=== PATIENT | female | born 1985 | race Caucasian/White ===

== ENCOUNTER → 2017-09-24 | Outpatient (CLI) | payer BC, OTHER ==
[2017-09-24 09:09] LABS: ALT 37 U/L (9-52); AST 18 U/L (14-36); Albumin 3.9 g/dL (3.5-5.0); Alkaline Phosphatase 32 U/L (38-126); Anion Gap 11 mmol/L; Blood Urea Nitrogen 7 mg/dL (7-17); Calcium 9.1 mg/dL (8.4-10.2); Carbon Dioxide 25 mmol/L (22-30); Chloride 105 mmol/L (98-107); Cholesterol 136 mg/dL (<200); Glucose 91 mg/dL (74-99); HDL Cholesterol 52 mg/dL (40-60); LDL Cholesterol,Calculated 72 mg/dL (0-99); Potassium 4.4 mmol/L (3.5-5.1); Sodium 141 mmol/L (137-145); Total Bilirubin 0.5 mg/dL (0.2-1.3); Total Protein 6.5 g/dL (6.3-8.2); Triglycerides 62 mg/dL (<150)
[2017-09-24 09:12] LABS: Basophils % (A) 1 %; Eosinophils # (A) 0.2 k/uL (0-0.7); Eosinophils % (A) 4 %; HCT 41.9 % (34.0-46.0); HGB 13.2 gm/dL (11.4-16.0); Lymphocytes # (A) 1.6 k/uL (1.0-4.8); Lymphocytes % (A) 40 %; MCH 28.7 pg (25.0-35.0); MCHC 31.6 g/dL (31.0-37.0); MCV 90.9 fL (80.0-100.0); Mean Platelet Volume 7.3; Monocytes # (A) 0.3 k/uL (0-1.0); Monocytes % (A) 7 %; Neutrophils # (A) 1.8 k/uL (1.3-7.7); Neutrophils % (A) 45 %; Platelet Count 240 k/uL (150-450); RBC 4.61 m/uL (3.80-5.40); RDW 13.1 % (11.5-15.5); WBC 3.9 k/uL (3.8-10.6)
== END | disposition home or self-care (01) ==
LOC: LABWHC1 07:47
PROVIDERS: ATTEND Family Medicine
DX: Z00.00 Encounter for general adult medical examination without abnormal findings (principal); R53.83 Other fatigue; N93.8 Other specified abnormal uterine and vaginal bleeding; F32.9 Major depressive disorder, single episode, unspecified
CPT/HCPCS: 36415; 80053; 80061; 82607; 84443; 85025

== ENCOUNTER → 2017-10-30 | Outpatient (CLI) | payer OTHER ==
[2017-10-30 10:40] LABS: Basophils # (A) 0.1 k/uL (0-0.2); Basophils % (A) 1 %; Eosinophils # (A) 0.2 k/uL (0-0.7); Eosinophils % (A) 4 %; HCT 43.6 % (34.0-46.0); Lymphocytes # (A) 1.2 k/uL (1.0-4.8); Lymphocytes % (A) 23 %; MCH 28.8 pg (25.0-35.0); MCV 89.8 fL (80.0-100.0); Mean Platelet Volume 7.6; Monocytes # (A) 0.3 k/uL (0-1.0); Monocytes % (A) 7 %; Neutrophils # (A) 3.2 k/uL (1.3-7.7); Neutrophils % (A) 62 %; Platelet Count 232 k/uL (150-450); RBC 4.85 m/uL (3.80-5.40); RDW 13.3 % (11.5-15.5); WBC 5.1 k/uL (3.8-10.6)
== END | disposition home or self-care (01) ==
LOC: LABPAT 09:48
PROVIDERS: ATTEND Obstetrics & Gynecology
DX: Z01.812 Encounter for preprocedural laboratory examination (principal)
CPT/HCPCS: 36415; 85025

== ENCOUNTER 2017-11-07 06:01 | Day surgery (SDC) | payer OTHER ==
[2017-10-31 16:48] VITALS: BMI 29.0
--- NOTE | 2017-11-06 07:28 | P.HPOB ---
History of Present Illness H&P Date: 11/06/17 Chief Complaint: Menorrhagia This patient is a pleasant 31 yr female who is presenting for a hysteroscopy, D&C and Novasure endometrial ablation secondary to longstanding menorrhagia. Menses have continued to be a problem despite OCPs. She has had a tubal ligation and would like to proceed with ablation. Review of Systems Genitourinary: Reports as per HPI Menstruation: Reports cycle variable, Reports menses 8 or > days, Reports period heavy Past Medical History Past Medical History: CVA/TIA, Pneumonia, Skin Disorder Additional Past Medical History / Comment(s): currently having heavy menses- spotting daily,TIA during , eczema, has neck problems. Patient has a known pelvic kidney. History of Any Multi-Drug Resistant Organisms: MRSA Date of last positivie culture/infection: anjum thighs MDRO Source:: 2010 Additional Past Surgical History / Comment(s): bx of skin, oral surgery Past Anesthesia/Blood Transfusion Reactions: No Reported Reaction, Motion Sickness Past Psychological History: No Psychological Hx Reported Smoking Status: Never smoker Past Alcohol Use History: None Reported Past Drug Use History: None Reported - Past Family History Father Family Medical History: Cancer Medications and Allergies Home Medications Medication Instructions Recorded Confirmed Type Cetirizine HCl [Zyrtec] 10 mg PO DAILY 10/31/17 10/31/17 History FLUoxetine HCL [PROzac] 10 mg PO HS 10/31/17 10/31/17 History Fluticasone Nasal [place] [Flonase 2 spr EA NOSTRIL DAILY PRN 10/31/17 10/31/17 History Nasal [place]] Ibuprofen [Motrin] 200 - 400 mg PO Q6HR PRN 10/31/17 10/31/17 History Ben Fe (Birthcontrol) 1 tab PO QAM 10/31/17 10/31/17 History Allergies Allergy/AdvReac Type Severity Reaction Status Date / Time codeine AdvReac Nausea Verified 10/31/17 16:40 Exam - OBG Physical Exam Abdomen: bowel sounds normal, no diffuse tenderness, no bruit present, no guarding noted, no hepatomegaly, no splenomegaly, no mass Vulva: both: normal Vagina: normal moisture, no discharge Cervix: no lesion, no discharge Uterus: normal size, normal contour Assessment and Plan Assessment: This is a pleasant 31 year old with long standing menorrhagia who is requesting endometrial ablation for treatment. Plan is to proceed with hysteroscopy, D&C, and Novasure endometrial ablation. Patient and I have discussed this surgery and risks: infection, bleeding, possible uterine perforation and / or thermal injury. All of the patients questions have been answered and a written consent obtained. (1) Menorrhagia Status: Chronic Code(s): N92.0 - EXCESSIVE AND FREQUENT MENSTRUATION WITH REGULAR CYCLE SNOMED Code(s): 030602649
[~2017-11-07 06:01] MED LIST: DEXAMETHASONE SOD PHOSPHATE 10 MG/ML 1 ML VIAL IV ONE; LACTATED RINGERS 1,000 ML IV SCH; MORPHINE SULFATE 4 MG/ML SYRINGE IV PRN; ONDANSETRON 4 MG/2 ML VIAL IVP ONE; Pre Op ABX Message 1 EACH MISC MISCELLANE ONE
[2017-11-07] MEDS ORDERED: LIDOCAINE 1% 20 ML VIAL (10MG/ML) FOR IV START INTRADERMA ONE (06:44)
[2017-11-07] MEDS ORDERED: fentaNYL (PF) 50 MCG/ML 2 ML AMP ONE (07:19)
[2017-11-07] MEDS ORDERED: PROPOFOL 10 MG/ML 20 ML VIAL IV ONE (07:19)
[2017-11-07] MEDS ORDERED: LIDOCAINE 1% INJ 10MG/ML (20 ML MDV) ONE (07:19)
[2017-11-07] MEDS ORDERED: MIDAZOLAM 2 MG/2 ML VIAL ONE (07:19)
[2017-11-07] MEDS ORDERED: KETOROLAC 30 MG/ML 1 ML VIAL ONE (07:19)
--- NOTE | 2017-11-07 07:58 | P.OP ---
Date of Procedure: 11/07/17 Preoperative Diagnosis: Menorrhagia Postoperative Diagnosis: Same Procedure(s) Performed: #1: Hysteroscopy. #2: Dilation and curettage. #3: NovaSure endometrial ablation Anesthesia: MAC Surgeon: Marshall Murrell Estimated Blood Loss (ml): 10 Urine output (ml): 20 Pathology: other (Uterine curettings) Condition: stable Disposition: PACU Indications for Procedure: Please see dictated H&P for intimate details of this patient's admission. Brief summary is a pleasant 31-year-old female with long-standing menorrhagia requesting endometrial ablation for treatment. Patient I have discussed the surgery and risks including risks of infection, bleeding, possible uterine perforation, and/or thermal injury. All the patient's questions are answered and a written consent is obtained. Operative Findings: This patient had a normal-appearing endometrial cavity. There was some suggestion of a possible fundal small uterine septum. Description of Procedure: This patient is taken to the operating room where she is laid in the supine position. She subsequent undergoes general anesthetic without incident. An adequate level of anesthesia patient is placed in dorsal lithotomy position. As a vaginal perineal prep and drape. Examination of anesthesia shows a mid position uterus of normal size. I first drain the bladder for 20 mL of clear urine. Weighted speculum was placed in the posterior vagina. Anterior lip of the cervix is gravid and Allis clamp. I then gently sound the uterus to approximately 9 cm. With this done the cervix is gently dilated to allow the hysteroscope easily uterine cavity. Using saline solution hysteroscopy is performed uterine cavity appears to be without evidence of polyps fibroids or other growths. There is a questionable small septum the fundal region. This does not appear large enough to inhibit this procedure however. With this done the hysteroscope was removed. Cervix is dilated more to allow a small curette easily uterine cavity a gentle but thorough 4 quadrant curettage is then done. With this done the cervix is dilated more to allow the NovaSure device to enter the uterine cavity. Set at a length of 6 cm and a width of 3 cm. It passes the cavity integrity test after being seated in place and then is enabled for 60 seconds at 99 W. With this done the NovaSure device is then removed. Hysteroscopy is then performed again and the uterine cavity appears to be ablated and the previously noted septum is also visualized again appears small. This done the procedure is ended. The Allis clamp and weighted speculum removed. All counts are correct 3. There are no complications. Patient is taken the recovery room in satisfactory condition.
[2017-11-07 08:10] VITALS: TEMP 97
[2017-11-07 08:19] VITALS: RESP 16
[2017-11-07 09:20] VITALS: BP 132/65; PULSE 60
== END 2017-11-07 09:37 | disposition home or self-care (01) ==
LOC: OR 06:01
PROVIDERS: ATTEND Obstetrics & Gynecology
DX: N85.9 Noninflammatory disorder of uterus, unspecified (principal); N92.0 Excessive and frequent menstruation with regular cycle; L30.9 Dermatitis, unspecified; Z86.73 Personal history of transient ischemic attack (TIA), and cerebral infarction without residual deficits; Z86.14 Personal history of Methicillin resistant Staphylococcus aureus infection; Z79.3 Long term (current) use of hormonal contraceptives; Z79.51 Long term (current) use of inhaled steroids; Z79.899 Other long term (current) drug therapy; Z88.5 Allergy status to narcotic agent; Z98.51 Tubal ligation status
CPT/HCPCS: 81025; 88305; 58563; J2250; J1100; J2405; J2001; J3010; J1885; J2704

== ENCOUNTER 2020-03-20 15:22 | Emergency (ER) | payer OTHER ==
[2020-03-20 15:35] VITALS: RESP 18; TEMP 97.7
[2020-03-20] MEDS ORDERED: KETOROLAC 15 MG/ML 1 ML VIAL IVP STA (16:12)
[2020-03-20] MEDS ORDERED: SODIUM CHLORIDE 0.9% 1,000 ML IV STA (16:12)
[2020-03-20 16:31] LABS: Basophils % (A) 1 %; Eosinophils # (A) 0.1 k/uL (0-0.7); Eosinophils % (A) 2 %; HCT 42.2 % (34.0-46.0); HGB 13.3 gm/dL (11.4-16.0); Lymphocytes # (A) 1.5 k/uL (1.0-4.8); Lymphocytes % (A) 28 %; MCH 30.4 pg (25.0-35.0); MCHC 31.5 g/dL (31.0-37.0); MCV 96.4 fL (80.0-100.0); Mean Platelet Volume 7.7; Monocytes # (A) 0.4 k/uL (0-1.0); Monocytes % (A) 8 %; Neutrophils # (A) 3.1 k/uL (1.3-7.7); Neutrophils % (A) 59 %; Platelet Count 226 k/uL (150-450); RBC 4.38 m/uL (3.80-5.40); RDW 13.4 % (11.5-15.5); WBC 5.3 k/uL (3.8-10.6)
[2020-03-20 16:40] LABS: Appearance,Urine Clear (Clear); Bilirubin,Urine Negative (Negative); Blood,Urine Negative (Negative); Color,Urine Yellow; Glucose,Urine (UA) Negative (Negative); Ketones,Urine Negative (Negative); Leukocyte Esterase,Urine Negative (Negative); Nitrite,Urine Negative (Negative); Protein,Urine Negative (Negative); Specific Gravity,Urine 1.005 (1.001-1.035); Urobilinogen,Urine <2.0 mg/dL (<2.0)
[2020-03-20 16:57] LABS: ALT 16 U/L (4-34); AST 25 U/L (14-36); African American GFR (CKD) >90 (>60 ml/min/1.73 sqM); Albumin 4.7 g/dL (3.5-5.0); Alkaline Phosphatase 44 U/L (38-126); Amylase 47 U/L (30-110); Anion Gap 7 mmol/L; Blood Urea Nitrogen 9 mg/dL (7-17); Calcium 9.3 mg/dL (8.4-10.2); Carbon Dioxide 26 mmol/L (22-30); Chloride 106 mmol/L (98-107); Glucose 90 mg/dL (74-99); Non-African American GFR(CKD) >90 (>60 ml/min/1.73 sqM); Potassium 4.2 mmol/L (3.5-5.1); Sodium 139 mmol/L (137-145); Total Bilirubin 1.7 mg/dL (0.2-1.3); Total Protein 7.4 g/dL (6.3-8.2)
--- NOTE | 2020-03-20 17:26 | ED ---
Abdominal Pain HPI - General Chief Complaint: Abdominal Pain Stated Complaint: Abd pain Time Seen by Provider: 03/20/20 15:32 Source: patient Mode of arrival: ambulatory Limitations: no limitations - History of Present Illness Initial Comments: Patient is a 34-year-old female presenting to the emergency Department with complaints of right-sided abdominal pain that has been increasing over the past 2 days. Patient states she normally gets some mild lower abdominal cramping and discomfort at the start of her period. She states she thought that was going on however this pain is more on the upper right quadrant and into her right side. She states she does feel nauseous, no vomiting. She states this pain feels different than her normal cramps. She does have history of tubal ligation, no other abdominal surgeries. She denies dysuria, frequency, vaginal discharge. She denies any fever, chills, chest pain or shortness of breath. She denies b eing this time secondary to his tubal ligation. She did not take anything for pain today. She has no further complaints. Upon arrival to the ER her vitals are stable. - Related Data Home Medications Medication Instructions Recorded Confirmed Cetirizine HCl [Zyrtec] 10 mg PO DAILY 10/31/17 11/07/17 FLUoxetine HCL [PROzac] 10 mg PO HS 10/31/17 11/07/17 Fluticasone Nasal [place] [Flonase 2 spr EA NOSTRIL DAILY PRN 10/31/17 11/07/17 Nasal [place]] Ibuprofen [Motrin] 200 - 400 mg PO Q6HR PRN 10/31/17 11/07/17 Ben Fe (Birthcontrol) 1 tab PO QAM 10/31/17 11/07/17 Previous Rx's Medication Instructions Recorded Ibuprofen [Motrin] 600 mg PO Q6HR PRN #40 tab 11/07/17 Allergies Allergy/AdvReac Type Severity Reaction Status Date / Time codeine AdvReac Nausea Verified 11/07/17 06:29 Review of Systems ROS Statement: Those systems with pertinent positive or pertinent negative responses have been documented in the HPI. ROS Other: All systems not noted in ROS Statement are negative. Past Medical History Past Medical History: CVA/TIA, Pneumonia, Skin Disorder Additional Past Medical History / Comment(s): currently having heavy menses-spo tting daily,TIA during , eczema, has neck problems. Patient has a known pelvic kidney. History of Any Multi-Drug Resistant Organisms: MRSA Date of last positivie culture/infection: anjum thighs MDRO Source:: 2010 Additional Past Surgical History / Comment(s): bx of skin, oral surgery Past Anesthesia/Blood Transfusion Reactions: No Reported Reaction, Motion Sickness Past Psychological History: No Psychological Hx Reported Past Alcohol Use History: None Reported Past Drug Use History: None Reported - Past Family History Father Family Medical History: Cancer General Exam - General Exam Comments Initial Comments: GENERAL: Patient is well-developed and well-nourished. Patient is nontoxic and in no acute distress, but does look mildly uncomfortable. HEAD: Atraumatic, normocephalic. EYES: Pupils equal round and reactive to light, extraocular movements intact, sclera anicteric, conjunctiva are normal. Eyelids were unremarkable. ENT: TMs normal, nares patent, oropharynx clear without exudates. Moist mucous membranes. NECK: Normal range of motion, supple without lymphadenopathy or JVD. LUNGS: Unlabored respirations. Breath sounds clear to auscultation bilaterally and equal. No wheezes rales or rhonchi. HEART: Regular rate and rhythm without murmurs, rubs or gallops. ABDOMEN: Patient has pain with palpation the right upper quadrant, right lower quadrant and right side of the abdomen. She also has some mild pain around her umbilical area. Soft, normoactive bowel sounds. No masses appreciated. : Deferred MUSCULOSKELETAL: Normal extremities with adequate strength and normal range of motion, no pitting or edema. No clubbing or cyanosis. NEUROLOGICAL: Patient is alert and oriented x 3. Normal speech, normal gait. PSYCH: Normal mood, normal affect. SKIN: Warm, Dry, normal turgor, no rashes or lesions noted. Limitations: no limitations Course Vital Signs 03/20/20 15:30 Temperature 97.7 F Pulse Rate 62 Respiratory 18 Rate Blood Pressure 120/73 O2 Sat by Pulse 100 Oximetry Medical Decision Making - Medical Decision Making Patient is a 34-year-old female here for right upper quadrant, right lower quadrant pain has been increasing over the past 2 days. She has history of tubal ligation, no other abdominal surgeries. Her vitals are stable. Her labs show a normal white count, normal lactic acid, normal lipase. Her urine shows no evidence of infection, she is not . Total bilirubin is elevated at 1.7. 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 I discussed these findings with the patient. I suggested her pain in the right upper quadrant could be related to biliary colic. Recommend following up with her PCP or a general surgeon. She is to limit her fatty food intake. She is in agreement with this plan of care. She is stable for discharge. Return parameters were discussed with the patient she verbalized understanding. Case discussed Dr. Galloway. - Lab Data Result diagrams: 03/20/20 16:16 03/20/20 16:16 Lab Results 03/20/20 03/20/20 03/20/20 Range/Units 16:16 16:16 16:16 WBC 5.3 (3.8-10.6) k/uL RBC 4.38 (3.80-5.40) m/uL Hgb 13.3 (11.4-16.0) gm/dL Hct 42.2 (34.0-46.0) % MCV 96.4 (80.0-100.0) fL MCH 30.4 (25.0-35.0) pg MCHC 31.5 (31.0-37.0) g/dL RDW 13.4 (11.5-15.5) % Plt Count 226 (150-450) k/uL Neutrophils % 59 % Lymphocytes % 28 % Monocytes % 8 % Eosinophils % 2 % Basophils % 1 % Neutrophils # 3.1 (1.3-7.7) k/uL Lymphocytes # 1.5 (1.0-4.8) k/uL Monocytes # 0.4 (0-1.0) k/uL Eosinophils # 0.1 (0-0.7) k/uL Basophils # 0.0 (0-0.2) k/uL Sodium (137-145) mmol/L Potassium (3.5-5.1) mmol/L Chloride (98-107) mmol/L Carbon Dioxide (22-30) mmol/L Anion Gap mmol/L BUN (7-17) mg/dL Creatinine (0.52-1.04) mg/dL Est GFR (CKD-EPI)AfAm (>60 ml/min/1.73 sqM) Est GFR (CKD-EPI)NonAf (>60 ml/min/1.73 sqM) Glucose (74-99) mg/dL Plasma Lactic Acid Dk (0.7-2.0) mmol/L Calcium (8.4-10.2) mg/dL Total Bilirubin (0.2-1.3) mg/dL AST (14-36) U/L ALT (4-34) U/L Alkaline Phosphatase (38-126) U/L Total Protein (6.3-8.2) g/dL Albumin (3.5-5.0) g/dL Amylase (30-110) U/L Lipase (23-300) U/L Urine Color Yellow Urine Appearance Clear (Clear) Urine pH 7.0 (5.0-8.0) Ur Specific [place] 1.005 (1.001-1.035) Urine Protein Negative (Negative) Urine Glucose (UA) Negative (Negative) Urine Ketones Negative (Negative) Urine Blood Negative (Negative) Urine Nitrite Negative (Negative) Urine Bilirubin Negative (Negative) Urine Urobilinogen <2.0 (<2.0) mg/dL Ur Leukocyte Esterase Negative (Negative) Urine HCG, Qual Not Detected (Not Detectd) 03/20/20 03/20/20 Range/Units 16:16 16:16 WBC (3.8-10.6) k/uL RBC (3.80-5.40) m/uL Hgb (11.4-16.0) gm/dL Hct (34.0-46.0) % MCV (80.0-100.0) fL MCH (25.0-35.0) pg MCHC (31.0-37.0) g/dL RDW (11.5-15.5) % Plt Count (150-450) k/uL Neutrophils % % Lymphocytes % % Monocytes % % Eosinophils % % Basophils % % Neutrophils # (1.3-7.7) k/uL Lymphocytes # (1.0-4.8) k/uL Monocytes # (0-1.0) k/uL Eosinophils # (0-0.7) k/uL Basophils # (0-0.2) k/uL Sodium 139 (137-145) mmol/L Potassium 4.2 (3.5-5.1) mmol/L Chloride 106 (98-107) mmol/L Carbon Dioxide 26 (22-30) mmol/L Anion Gap 7 mmol/L BUN 9 (7-17) mg/dL Creatinine 0.56 (0.52-1.04) mg/dL Est GFR (CKD-EPI)AfAm >90 (>60 ml/min/1.73 sqM) Est GFR (CKD-EPI)NonAf >90 (>60 ml/min/1.73 sqM) Glucose 90 (74-99) mg/dL Plasma Lactic Acid Dk 0.7 (0.7-2.0) mmol/L Calcium 9.3 (8.4-10.2) mg/dL Total Bilirubin 1.7 H (0.2-1.3) mg/dL AST 25 (14-36) U/L ALT 16 (4-34) U/L Alkaline Phosphatase 44 (38-126) U/L Total Protein 7.4 (6.3-8.2) g/dL Albumin 4.7 (3.5-5.0) g/dL Amylase 47 (30-110) U/L Lipase 27 (23-300) U/L Urine Color Urine Appearance (Clear) Urine pH (5.0-8.0) Ur Specific [place] (1.001-1.035) Urine Protein (Negative) Urine Glucose (UA) (Negative) Urine Ketones (Negative) Urine Blood (Negative) Urine Nitrite (Negative) Urine Bilirubin (Negative) Urine Urobilinogen (<2.0) mg/dL Ur Leukocyte Esterase (Negative) Urine HCG, Qual (Not Detectd) Disposition Clinical Impression: Right upper quadrant pain Disposition: HOME SELF-CARE Condition: Stable Instructions (If sedation given, give patient instructions): Biliary Colic (ED) Additional Instructions: Please return to the Emergency Department if symptoms worsen or any other concerns. Increase water intake. Limit fatty foods. Follow-up with PCP and/or surgeon as discussed. Is patient prescribed a controlled substance at d/c from ED?: No Referrals: Nita Adams MD [Primary Care Provider] - 1-2 days Mani Connor MD [Medical Doctor] - 1-2 days
--- NOTE | 2020-03-20 17:47 | CT ---
EXAMINATION TYPE: CT abdomen pelvis w con DATE OF EXAM: 03/20/2020 COMPARISON: 09/12/2012 HISTORY: RUQ pain CT DLP: 732 mGycm Automated exposure control for dose reduction was used. CONTRAST: Performed with IV Contrast, patient injected with 100 mL of Isovue 300. Multiple axial sections were obtained from the diaphragm to the floor the pelvis with IV contrast Iso kolby 100 mL. Lung bases are clear. There is no pleural effusion. Heart size is normal. Liver and spleen appear intact. Liver is large and measures 22 cm in length. Bile ducts are not dilat ed. Gallbladder has normal size. Spleen is intact. There is no pancreatic mass. The stomach is intact . There is no adrenal mass. There is ectopic right kidney which is anterior to the sacrum. Kidneys have normal size. There is no hydronephrosis. Ureters are not dilated. 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 There is a radiopaque diaphragm in the upper vagina. Uterus is anteverted. Bladder distends smoothly. There is no inguinal hernia. Delayed images show normal renal excretion. There is no free fluid in the pelvis. There is no mesenteric edema. There is no ascites or free air. There is no sign of a bowel obstruction. Appendix is not seen. There is no sign of thickened appendix . The lumbar vertebra show fairly normal spacing and alignment. There is no compression fracture. Bon y pelvis is intact. The hip joints are intact. IMPRESSION: Ectopic right kidney. Bicornuate uterus. There is mild hepatomegaly.
[2020-03-20 18:15] VITALS: BP 108/67; PULSE 58
== END 2020-03-20 18:17 | disposition home or self-care (01) ==
LOC: EC 15:22
DX: R10.11 Right upper quadrant pain (principal); R10.31 Right lower quadrant pain; R11.0 Nausea; Z98.51 Tubal ligation status; Z88.5 Allergy status to narcotic agent; Z79.3 Long term (current) use of hormonal contraceptives; Z86.73 Personal history of transient ischemic attack (TIA), and cerebral infarction without residual deficits; Z86.14 Personal history of Methicillin resistant Staphylococcus aureus infection
CPT/HCPCS: 36415; 80053; 82150; 83605; 83690; 85025; 81003; 81025; 74177; 99284; 96374; 96361 ×2; J1885; Q9967

== ENCOUNTER → 2020-04-19 | Outpatient (CLI) | payer OTHER ==
--- NOTE | 2020-04-19 08:27 | US ---
EXAMINATION TYPE: US gallbladder DATE OF EXAM: 04/19/2020 COMPARISON: NONE CLINICAL HISTORY: 34-year-old female K81.1 chronic cholecystitis, K82.8 BILIARY DYSKINESIA. TECHNIQUE: Multiple sonographic images of the right upper quadrant are obtained. FINDINGS: EXAM MEASUREMENTS: Liver Length: 15.3 cm Gallbladder Wall: .2 cm CBD: .5 cm Right Kidney: 10.9 x 4.9 cm Pancreas: wnl Liver: wnl Gallbladder: No abnormal distention, wall thickening, pericholecystic fluid, or shadowing calculi. Evidence for sonographic Redmond's sign: No CBD: wnl Right Kidney: Pelvic kidney, very limited due to overlying bowel gas. IMPRESSION: 1. No sonographic features of acute/chronic cholecystitis or biliary ductal dilatation. 2. Ectopic, low-lying right kidney suboptimally visualized due to bowel gas.
== END | disposition home or self-care (01) ==
LOC: RADUSWWP 06:55
PROVIDERS: ATTEND Surgery
DX: K81.1 Chronic cholecystitis (principal); K82.8 Other specified diseases of gallbladder
CPT/HCPCS: 76705

== ENCOUNTER → 2020-04-28 | Outpatient (CLI) | payer OTHER ==
--- NOTE | 2020-04-29 08:19 | NM ---
EXAMINATION TYPE: NM hepatobiliary w CCK DATE OF EXAM: 04/28/2020 COMPARISON: Gallbladder ultrasound 9 days ago. HISTORY: Biliary dyskinesia. Chronic cholecystitis. TECHNIQUE: After the intravenous administration of 5.3 mCi Tc 99m Mebrofenin hepatobiliary scintigrap hy is performed. Immediate images post injection. FINDINGS: There is satisfactory initial accumulation of tracer by the liver. The gallbladder is visualized wit hin 10 minutes. The small bowel activity is noted within 30 minutes. At one hour CCK was administer ed, patient was injected with 1.4 mcg of Kinevac, and gallbladder ejection fraction is calculated at 90 %, not deviated from the normal range. Therefore there is no scintigraphic evidence of cystic or common bile duct obstruction to suggest acute cholecystitis . IMPRESSION: Ejection fraction is 90%, some consider this abnormal or a hyperkinetic response.
== END | disposition home or self-care (01) ==
LOC: RADNMMAIN 12:43
PROVIDERS: ATTEND Surgery
DX: K81.1 Chronic cholecystitis (principal); K82.2 Perforation of gallbladder
CPT/HCPCS: 78227; A9537; J2805

== ENCOUNTER 2020-05-24 06:17 | Day surgery (SDC) | payer OTHER ==
[2020-05-19 14:22] VITALS: BMI 26.5
[~2020-05-24 06:17] MED LIST changes: +ACETAMINOPHEN TAB 500 MG TAB PO ONE; -DEXAMETHASONE SOD PHOSPHATE 10 MG/ML 1 ML VIAL IV ONE; +HEPARIN SODIUM,PORCINE 5,000 UNIT/ML 1 ML VIAL SQ ONE; -LACTATED RINGERS 1,000 ML IV SCH; -MORPHINE SULFATE 4 MG/ML SYRINGE IV PRN; -ONDANSETRON 4 MG/2 ML VIAL IVP ONE; -Pre Op ABX Message 1 EACH MISC MISCELLANE ONE
[2020-05-24] MEDS ORDERED: DEXAMETHASONE SOD PHOSPHATE 10 MG/ML 1 ML VIAL IV ONE (06:26)
[2020-05-24] MEDS ORDERED: LIDOCAINE 1% (10MG/ML) FOR IV START INTRADERMA PRN (06:26)
[2020-05-24] MEDS ORDERED: LACTATED RINGERS 1,000 ML IV SCH (06:26)
[2020-05-24] MEDS ORDERED: MIDAZOLAM 2 MG/2 ML VIAL IV PRN (06:26)
[2020-05-24] MEDS ORDERED: HYDROmorphone 0.5 MG/0.5 ML SYRINGE IVP PRN (06:26)
[2020-05-24] MEDS ORDERED: ONDANSETRON 4 MG/2 ML VIAL IVP ONE (06:26)
[2020-05-24] MEDS ORDERED: MIDAZOLAM 2 MG/2 ML VIAL ONE (07:39)
[2020-05-24] MEDS ORDERED: SUCCINYLCHOLINE CHLORIDE 100 MG/5 ML SYR IV ONE (07:39)
[2020-05-24] MEDS ORDERED: PROPOFOL 10 MG/ML 20 ML VIAL IV ONE (07:39)
[2020-05-24] MEDS ORDERED: KETAMINE 10 MG/ML 20 ML VIAL ONE (07:39)
[2020-05-24] MEDS ORDERED: ROCURONIUM 10 MG/ML (10 ML VIAL) IV ONE (07:39)
[2020-05-24] MEDS ORDERED: KETOROLAC 15 MG/ML 1 ML VIAL ONE (07:39)
[2020-05-24] MEDS ORDERED: fentaNYL (PF) 50 MCG/ML 2 ML AMP ONE (07:39)
[2020-05-24] MEDS ORDERED: NEOSTIGMINE 1 MG/ML 10 ML VIAL ONE (07:39)
[2020-05-24] MEDS ORDERED: GLYCOPYRROLATE 0.2 MG/ML 2 ML VIAL ONE (07:39)
[2020-05-24] MEDS ORDERED: LIDOCAINE 1% INJ 10MG/ML (20 ML MDV) ONE (07:39)
[2020-05-24] MEDS ORDERED: BUPIVACAINE (PF) 0.5% 30 ML VIAL SQ ONE (08:03)
[2020-05-24] MEDS ORDERED: LACTATED RINGERS 1,000 ML IV ONE (08:09)
[2020-05-24 08:24] VITALS: RESP 16; TEMP 97.9
--- NOTE | 2020-05-24 08:32 | P.OP ---
Date of Procedure: 05/24/20 Preoperative Diagnosis: Cholecystitis Postoperative Diagnosis: Cholecystitis Procedure(s) Performed: Laparoscopic cholecystectomy Anesthesia: KARL Surgeon: Chapito Aguiar Estimated Blood Loss (ml): 5 Pathology: other (Gallbladder) Condition: stable Disposition: PACU Description of Procedure: The patient was placed on the operating table. The patient received a general endotracheal tube anesthesia. The patients abdomen was prepped and draped in the usual sterile fashion. Through an infraumbilical stab incision, the fascia of the anterior abdominal wall was grasped with a pair of Kochers and then the Veress needle was placed in the peritoneal cavity. Position of the Veress needle was confirmed with positive drop test. The abdomen was then insufflated. After adequate insufflation, the 10 mm trocar was placed in the peritoneal cavity. Following this the laparoscope was placed in the peritoneal cavity. The patient was placed in the head-up, right side up position and then a 5 mm trocar was placed in the right lateral and right subcostal position under direct visualization. A 8 mm trocar was placed in the epigastric position. The gallbladder was grasped in the fundus and infundibulum. Traction on the gallbladder was placed in the lateral and the cephalad positions. The triangle of Calot was visualized.. The cystic duct was bluntly dissected until the union of the cystic duct and common bile duct was seen. A critical view of safety was achieved. The cystic duct was then divided and sealed with the Harmonic scissors. A PDS Endoloop was then placed throughout the cystic duct stump. The cystic artery divided and sealed with the Harmonic scissors. The gallbladder was then removed from the liver bed using Harmonic scissors. The gallbladder was then extracted through the epigastric port site. Operative field was checked for any bleeding spots and Harmonic scissors was used to coagulate the liver bed. The abdomen was irrigated. The trocars were removed. The skin was closed using interrupted 3-0 Vicryl suture. Dermabond dressing were applied. The patient tolerated the procedure well.
--- NOTE | 2020-05-24 08:33 | P.GSHP ---
History of Present Illness H&P Date: 05/24/20 Chief Complaint: Right upper quadrant pain This a 34-year-old female presents today for laparoscopically cholecystectomy. She's had complete upper quadrant pain. Her recent HIDA scan showed a elevated ejection fraction Past Medical History Past Medical History: CVA/TIA Additional Past Medical History / Comment(s): ,TIA during , eczema, has neck problems. Patient has a known pelvic kidney. GALLBLADDER DISORDER History of Any Multi-Drug Resistant Organisms: MRSA Date of last positivie culture/infection: anjum thighs MDRO Source:: 2010 Past Surgical History: Tubal Ligation, Uterine Ablation Additional Past Surgical History / Comment(s): bx of skin, oral surgery Past Anesthesia/Blood Transfusion Reactions: Motion Sickness Smoking Status: Former smoker - Past Family History Father Family Medical History: Cancer Medications and Allergies Home Medications Medication Instructions Recorded Confirmed Type No Known Home Medications 05/19/20 05/24/20 History Allergies Allergy/AdvReac Type Severity Reaction Status Date / Time codeine AdvReac Nausea Verified 05/24/20 06:30 Surgical - Exam Vital Signs Temp Pulse Resp BP Pulse Ox 97.1 F L 71 17 121/71 98 05/24/20 06:43 05/24/20 06:43 05/24/20 06:43 05/24/20 06:43 05/24/20 06:43 - General well developed, well nourished, no distress - Eyes PERRL - ENT normal pinna - Neck no masses - Respiratory normal expansion - Cardiovascular Rhythm: regular - Abdomen Abdomen: soft, non tender Assessment and Plan Assessment: Right quadrant pain Chronic cholecystis We'll perform laparoscopic cholecystectomy.
[2020-05-24] MEDS ORDERED: IBUPROFEN 200 MG TAB PO ONE (09:15)
[2020-05-24 09:31] VITALS: BP 104/58; PULSE 68
== END 2020-05-24 10:33 ==
LOC: OR 06:17
PROVIDERS: ATTEND Surgery
DX: K81.1 Chronic cholecystitis (principal); Z86.73 Personal history of transient ischemic attack (TIA), and cerebral infarction without residual deficits; L30.9 Dermatitis, unspecified; Z86.14 Personal history of Methicillin resistant Staphylococcus aureus infection; Z98.51 Tubal ligation status; Z98.890 Other specified postprocedural states; Z87.891 Personal history of nicotine dependence; Z80.9 Family history of malignant neoplasm, unspecified; Z88.5 Allergy status to narcotic agent
CPT/HCPCS: 81025; 88304; 47562; J2250; J1644; J1100; J2710; J0690; J2405; J2001; J3010; J1885; J0330; J2704; J1170

== ENCOUNTER → 2021-06-13 | Outpatient (CLI) | payer OTHER ==
--- NOTE | 2021-06-15 09:05 | MM ---
Reason for exam: screening (asymptomatic). Baseline mammogram. History: Family history of breast cancer in maternal aunt at age 60. Took hormonal contraceptives for 6 years beginning at age 16. Physical Findings: Nurse did not find any significant physical abnormalities on exam. MG 3D Screening Mammo W/Cad Bilateral CC and MLO view(s) were taken. There are scattered fibroglandular densities. There is no discrete abnormality. ASSESSMENT: Benign, BI-RAD 2 RECOMMENDATION: Routine screening mammogram of both breasts at age 40.
== END | disposition home or self-care (01) ==
LOC: RADMAMWWP 09:44
PROVIDERS: ATTEND Obstetrics & Gynecology
DX: Z12.31 Encounter for screening mammogram for malignant neoplasm of breast (principal); Z80.3 Family history of malignant neoplasm of breast
CPT/HCPCS: 77063; 77067

== ENCOUNTER → 2021-09-21 | Outpatient (CLI) | payer OTHER ==
[2021-09-21 17:20] LABS: Anion Gap 12.1 mmol/L (10.00-18.00); BUN/Creat Ratio 14.33 Ratio (12.00-20.00); Blood Urea Nitrogen 10.3 mg/dL (9.0-27.0); Carbon Dioxide 21.6 mmol/L (20.0-27.5); Non-African American GFR(CKD) 108.7 (60.0-200.0)
== END | disposition home or self-care (01) ==
LOC: LABWHC1 09:43
PROVIDERS: ATTEND Dermatology
DX: L70.0 Acne vulgaris (principal)
CPT/HCPCS: 36415; 80048

== ENCOUNTER → 2024-02-26 | Outpatient (CLI) | payer BC ==
--- NOTE | 2024-02-26 08:04 | CT ---
EXAMINATION TYPE: CT sinus wo con DATE OF EXAM: 02/26/2024 COMPARISON: None HISTORY: reoccurring sinus and ear infections CT DLP: 648.[address] of the paranasal sinuses was performed in the axial and coronal planes. Bone and soft tissue settings are submitted. The paranasal sinuses demonstrate normal aeration and development. The paranasal sinuses are free of mucosal thickening or air fluid level. Mucous retention cysts are n oted at the bases of the bilateral maxillary sinuses measuring 1.8 x 1.2 cm on the right and 2.2 x 1. 7 cm on the left. The osteal meatal units are patent bilaterally. Nasal septum deviated from left to right. No bony destructive changes are seen within the field of view. IMPRESSION: 1. Mucous retention cysts bilateral maxillary sinuses. 2. Nasal septal deviation from left to right.
== END | disposition home or self-care (01) ==
LOC: RADCTMAIN 06:59
PROVIDERS: ATTEND Family Medicine
DX: J34.2 Deviated nasal septum (principal); J32.9 Chronic sinusitis, unspecified; J34.1 Cyst and mucocele of nose and nasal sinus
CPT/HCPCS: 70486

== ENCOUNTER 2024-07-10 14:44 | Emergency (ER) | payer BC ==
[2024-07-10 14:57] VITALS: RESP 18; TEMP 98.9
--- NOTE | 2024-07-10 15:22 | ED ---
Back Pain HPI - General Chief Complaint: Back Pain/Injury Stated Complaint: [facility] Time Seen by Provider: 07/10/24 15:13 Source: patient, RN notes reviewed Limitations: no limitations - History of Present Illness Initial Comments: This is a 38-year-old female presenting to the emergency department for chief complaint of a work-related injury that occurred approximately 1 week ago. 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 States that she has been experiencing lower abdominal pain and pain of her lumbar spine that is exacerbated with flexion and rotation. She denies falling at the time of the injury. She denies loss of bladder bowel continence or saddle anesthesias. She states that over the past week she has had minor incontinence after increasing intra-abdominal pressure such as coughing or heavy straining states that this is occurred to her in the past. She has been taking Motrin at home with some relief. patient had an abdominoplasty previously, no mesh. - Related Data Previous Rx's Medication Instructions Recorded Acetaminophen Tab [Tylenol] 650 mg PO Q6H #30 tab 05/24/20 Docusate [Colace] 100 mg PO BID #20 capsule 05/24/20 Ibuprofen [Motrin] 600 mg PO Q6HR PRN #40 tab 20 oxyCODONE HCL [OxyIR] 5 mg PO Q4H PRN 3 Days #18 tab 05/24/20 Lidocaine 5% Patch [Lidoderm] 1 patch TOPICAL DAILY #10 patch 07/10/24 Allergies Allergy/AdvReac Type Severity Reaction Status Date / Time egg Allergy Unknown Verified 07/10/24 14:53 milk Allergy Unknown Verified 07/10/24 14:53 codeine AdvReac Nausea Verified 07/10/24 14:53 dust Allergy Unknown Uncoded 07/10/24 14:53 Review of Systems ROS Statement: Those systems with pertinent positive or pertinent negative responses have been documented in the HPI. ROS Other: All systems not noted in ROS Statement are negative. Past Medical History Past Medical History: CVA/TIA Additional Past Medical History / Comment(s): ,TIA during , eczema, has neck problems. Patient has a known pelvic kidney. GALLBLADDER DISORDER History of Any Multi-Drug Resistant Organisms: MRSA Date of last positivie culture/infection: anjum thighs MDRO Source:: 2010 Past Surgical History: Tubal Ligation, Uterine Ablation Additional Past Surgical History / Comment(s): bx of skin, oral surgery Past Anesthesia/Blood Transfusion Reactions: Motion Sickness Past Psychological History: No Psychological Hx Reported Smoking Status: Former smoker Past Alcohol Use History: Rare Past Drug Use History: None Reported - Past Family History Father Family Medical History: Cancer General Exam Limitations: no limitations General appearance: alert, in no apparent distress Eye exam: Present: normal appearance, PERRL, EOMI. Absent: scleral icterus, conjunctival injection, periorbital swelling Neck exam: Present: normal inspection. Absent: tenderness, meningismus, lymphadenopathy Respiratory exam: Present: normal lung sounds bilaterally. Absent: respiratory distress, wheezes, rales, rhonchi, stridor Cardiovascular Exam: Present: regular rate, normal rhythm, normal heart sounds. Absent: systolic murmur, diastolic murmur, rubs, gallop, clicks GI/Abdominal exam: Present: soft, tenderness (suprapubic), normal bowel sounds. Absent: distended, guarding, rebound, rigid Extremities exam: Present: normal inspection, full ROM, normal capillary refill. Absent: tenderness, pedal edema, joint swelling, calf tenderness Back exam: Present: normal inspection, full ROM, tenderness (with flexion and side bending). Absent: CVA tenderness (R), CVA tenderness (L) Neurological exam: Present: alert, oriented X3, CN II-XII intact Course Vital Signs 07/10/24 07/10/24 14:53 16:21 Temperature 98.9 F Pulse Rate 82 86 Respiratory 18 18 Rate Blood Pressure 124/83 124/80 O2 Sat by Pulse 100 Oximetry Medical Decision Making - Medical Decision Making Was pt. sent in by a medical professional or institution (, PA, SPEEDOMETER INSPECTOR, urgent care, hospital, or correction...) When possible be specific @ -No Did you speak to anyone other than the patient for history (EMS, parent, family, police, friend...)? What history was obtained from this source @ -No Did you review nursing and triage notes (agree or disagree)? Why? @ -I reviewed and agree with nursing and triage notes Were old charts reviewed (outside hosp., previous admission, EMS record, old EKG, old radiological studies, urgent care reports/EKG's, correction records)? Report findings @ -No old charts were reviewed Differential Diagnosis (chest pain, altered mental status, abdominal pain women, abdominal pain men, vaginal bleeding, weakness, fever, dyspnea, syncope, headache, dizziness, GI bleed, back pain, seizure, CVA, palpatations, mental health, musculoskeletal)? @ -Differential Abdominal Pain Women: Appendicitis, Cholecystitis, diverticulosis, ischemic bowel, pancreatitis, hepatitis, UTI, gastroenteritis, AAA, incarcerated hernia, bowel obstruction, constipation, inflammatory bowel, hepatitis, peptic ulcer disease, splenic infarction, perforated viscus, vulvitis, ovarian torsion, PID, kidney stone, placenta abruption, this is not meant to be an all-inclusive list EKG interpreted by me (3pts min.). @ -None X-rays interpreted by me (1pt min.). @ -None done CT interpreted by me (1pt min.). @ -CT abdomen without contrast reveals no evidence for acute process with an ectopic right kidney in the pelvis similar to prior U/S interpreted by me (1pt. min.). @ -None done What testing was considered but not performed or refused? (CT, X-rays, U/S, labs)? Why? @ -None What meds were considered but not given or refused? Why? @ -None Did you discuss the management of the patient with other professionals (professionals i.e. , PA, SPEEDOMETER INSPECTOR, lab, RT, psych nurse, social work supervisor, molding engineer, teacher, infantry weapons officer, continuous pillowcase cutter)? Give summary @ -No Was smoking cessation discussed for >3mins.? @ -No Was critical care preformed (if so, how long)? @ -No Were there social determinants of health that impacted care today? How? (Homelessness, low income, unemployed, alcoholism, drug addiction, transportation, low edu. Level, literacy, decrease access to med. care, intermediate, rehab)? @ -No Was there de-escalation of care discussed even if they declined (Discuss DNR or withdrawal of care, Hospice)? DNR status @ -No What co-morbidities impacted this encounter? (DM, HTN, Smoking, COPD, CAD, Cancer, CVA, ARF, Chemo, Hep., AIDS, mental health diagnosis, sleep apnea, morbid obesity)? @ -None Was patient admitted / discharged? Hospital course, mention meds given and route, prescriptions, significant lab abnormalities, going to OR and other pertinent info. @ -Discharge. 38-year-old female presenting after an injury. Patient would have mild suprapubic tenderness to palpation with no overlying skin changes. CT unremarkable for acute process. Patient provided with dose of Motrin and lidocaine patch to alleviate lumbar muscle strain and sent a prescription for lidocaine patches. She is recommended continue to perform gentle range of motion exercises lumbar spine and take Tylenol Motrin as needed for pain. discussed with Dr. Pavon Undiagnosed new problem with uncertain prognosis? @ -No Drug Therapy requiring intensive monitoring for toxicity (Heparin, Nitro, Insulin, Cardizem)? @ -No Were any procedures done? @ -No Diagnosis/symptom? @ -abdominal injury, lumbar back strain Acute, or Chronic, or Acute on Chronic? @ -acute Uncomplicated (without systemic symptoms) or Complicated (systemic symptoms)? @ -uncomplicated Side effects of treatment? @ -No Exacerbation, Progression, or Severe Exacerbation? @ -No Poses a threat to life or bodily function? How? (Chest pain, [place], [place], pneumonia, PE, COPD, DKA, ARF, appy, cholecystitis, CVA, Diverticulitis, Homicidal, Suicidal, threat to staff... and all critical care pts) @ -No Disposition Clinical Impression: Abdominal pain, Lumbar back sprain Disposition: HOME SELF-CARE Condition: Good Instructions (If sedation given, give patient instructions): Low Back Strain (ED) Additional Instructions: Please return to the Emergency Department if symptoms worsen or any other concerns. Continue supportive treatment at home such as using Tylenol Motrin as needed for pain. Use lidocaine patches as needed for lower back pain. Prescriptions: Lidocaine 5% Patch [Lidoderm] 1 patch TOPICAL DAILY #10 patch Is patient prescribed a controlled substance at d/c from ED?: No Referrals: Miriam Cohen MD [Primary Care Provider] - 1-2 days Time of Disposition: 16:12
[2024-07-10] MEDS: IBUPROFEN 800 MG TAB PO STA (15:38)
--- NOTE | 2024-07-10 16:05 | CT ---
EXAMINATION TYPE: CT abdomen pelvis wo con DATE OF EXAM: 07/10/2024 3:48 PM COMPARISON: 03/20/2020 CLINICAL INDICATION: Female, 38 years old with history of injury, lower abd pain; Patient fell x 1 we ek ago. states incontinence, abdominal pain, and pelvic pressure. TECHNIQUE: Axial CT abdomen pelvis wo con;Sagittal and coronal reformats were created on a separate workstation. Contrast used: mL of , (none if empty) Oral contrast used: without Oral Contrast (none if empty) CT DLP: 564.8 mGycm, Automated exposure control for dose reduction was used. FINDINGS: LOWER CHEST: Unremarkable ABDOMEN LIVER: Unremarkable GALLBLADDER AND BILE DUCTS: The gallbladder is surgically absent. PANCREAS: Unremarkable. SPLEEN: Unremarkable. ADRENAL GLANDS: Unremarkable. KIDNEYS AND URETERS: No evidence of hydronephrosis or renal calculus. The ureters are unremarkable. The right kidney is abnormally positioned near midline in the pelvis. PELVIS BLADDER: No evidence for wall thickening or mass given limitations of exam. REPRODUCTIVE: Unremarkable. ABDOMEN & PELVIS STOMACH AND BOWEL: No evidence of bowel obstruction. PERITONEUM/RETROPERITONEUM: No evidence of pneumoperitoneum or free fluid. VASCULATURE: No evidence of aortic aneurysm. MUSCULOSKELETAL: No acute osseous abnormalities, no evidence for spinal fracture. No significant spin al canal or neural foraminal stenosis. LYMPH NODES: No gross evidence for lymphadenopathy. SOFT TISSUE/ABDOMINAL WALL: Fat-containing buccal hernia. IMPRESSION: 1. No evidence for acute abdominal process. 2. Ectopic right kidney and the pelvis similar prior. [facility], , 07/10/2024 4:03 PM
[2024-07-10 16:22] VITALS: BP 124/80; PULSE 86
[2024-07-10] MEDS: LIDOCAINE 4% PATCH TOPICAL ONE (16:24)
== END 2024-07-10 16:25 | disposition home or self-care (01) ==
LOC: EC 14:44
DX: S33.5XXA Sprain of ligaments of lumbar spine, initial encounter (principal); Z91.012 Allergy to eggs; Z88.5 Allergy status to narcotic agent; Z91.048 Other nonmedicinal substance allergy status; Z87.891 Personal history of nicotine dependence; W03.XXXA Other fall on same level due to collision with another person, initial encounter; Y92.098 Other place in other non-institutional residence as the place of occurrence of the external cause
CPT/HCPCS: 74176; 99283

== ENCOUNTER 2024-07-18 16:41 | Emergency (ER) | payer BC ==
--- NOTE | 2024-07-18 17:16 | ED ---
Abdominal Pain HPI - General Chief Complaint: Abdominal Pain Stated Complaint: Abdominal Pain Time Seen by Provider: 07/18/24 17:00 Source: patient, RN notes reviewed Mode of arrival: ambulatory Limitations: no limitations - History of Present Illness Initial Comments: 38-year-old female presenting to the ER with chief complaint of abdominal pain. States she was seen in the ER a week ago after occupational injury when a resident had fallen on her. She was having pelvic pain and pressure at that time and CT revealed fat-containing umbilical hernia. States she has had pain since then around the umbilicus with lifting and carrying heavy objects. States this morning pain worsened and also radiates down the left leg. States pain was so severe this morning that she felt as though she was going to vomit. Reports sneezing also makes pain worse. Pain has improved mildly since this morning. Also states she started menstrual period this morning. History of cholecystectomy. Denies fever. - Related Data Previous Rx's Medication Instructions Recorded Acetaminophen Tab [Tylenol] 650 mg PO Q6H #30 tab 05/24/20 Docusate [Colace] 100 mg PO BID #20 capsule 05/24/20 Ibuprofen [Motrin] 600 mg PO Q6HR PRN #40 tab 05/24/20 oxyCODONE HCL [OxyIR] 5 mg PO Q4H PRN 3 Days #18 tab 05/24/20 Lidocaine 5% Patch [Lidoderm] 1 patch TOPICAL DAILY #10 patch 07/10/24 Ketorolac [Toradol] 10 mg PO Q8HR #15 tab 07/18/24 Allergies Allergy/AdvReac Type Severity Reaction Status Date / Time egg Allergy Unknown Verified 07/18/24 16:54 milk Allergy Unknown Verified 07/18/24 16:54 codeine AdvReac Nausea Verified 07/18/24 16:54 dust Allergy Unknown Uncoded 07/18/24 16:54 Review of Systems ROS Statement: Those systems with pertinent positive or pertinent negative responses have been documented in the HPI. ROS Other: All systems not noted in ROS Statement are negative. Past Medical History Past Medical History: CVA/TIA Additional Past Medical History / Comment(s): ,TIA during , eczema, has neck problems. Patient has a known pelvic kidney. GALLBLADDER DISORDER History of Any Multi-Drug Resistant Organisms: MRSA Date of last positivie culture/infection: anjum thighs MDRO Source:: 2010 Past Surgical History: Tubal Ligation, Uterine Ablation Additional Past Surgical History / Comment(s): bx of skin, oral surgery Past Anesthesia/Blood Transfusion Reactions: Motion Sickness Past Psychological History: No Psychological Hx Reported Smoking Status: Former smoker Past Alcohol Use History: Rare Past Drug Use History: None Reported - Past Family History Father Family Medical History: Cancer General Exam Limitations: no limitations General appearance: alert, in no apparent distress Head exam: Present: atraumatic, normocephalic, normal inspection GI/Abdominal exam: Present: soft, normal bowel sounds. Absent: distended, tenderness, guarding, rebound, rigid Back exam: Absent: CVA tenderness (R), CVA tenderness (L) Neurological exam: Present: alert, oriented X3 Psychiatric exam: Present: normal affect, normal mood Skin exam: Present: warm, dry, intact, normal color. Absent: rash Course Vital Signs 07/18/24 07/18/24 16:54 19:04 Temperature 98.5 F Pulse Rate 64 62 Respiratory 20 18 Rate Blood Pressure 152/84 115/68 O2 Sat by Pulse 99 100 Oximetry Medical Decision Making - Medical Decision Making Was pt. sent in by a medical professional or institution (Dr. PA, INSTRUMENT SHOP SUPERVISOR, urgent care, hospital, or custodial...) When possible be specific @ -No Did you speak to anyone other than the patient for history (EMS, parent, family, police, friend...)? What history was obtained from this source @ -No Did you review nursing and triage notes (agree or disagree)? Why? @ -I reviewed and agree with nursing and triage notes Were old charts reviewed (outside hosp., previous admission, EMS record, old EKG, old radiological studies, urgent care reports/EKG's, custodial records)? Report findings @ -Previous ER visit including CT abdomen pelvis reviewed which revealed u mbilical hernia Differential Diagnosis (chest pain, altered mental status, abdominal pain women, abdominal pain men, vaginal bleeding, weakness, fever, dyspnea, syncope, headache, dizziness, GI bleed, back pain, seizure, CVA, palpatations, mental health, musculoskeletal)? @ -Differential Abdominal Pain Women: Appendicitis, Cholecystitis, diverticulosis, ischemic bowel, pancreatitis, hepatitis, UTI, gastroenteritis, AAA, incarcerated hernia, bowel obstruction, constipation, inflammatory bowel, hepatitis, peptic ulcer disease, splenic infarction, perforated viscus, vulvitis, ovarian torsion, PID, kidney stone, placenta abruption, this is not meant to be an all-inclusive list EKG interpreted by me (3pts min.). @ -None X-rays interpreted by me (1pt min.). @ -None done CT interpreted by me (1pt min.). @ -CT abdomen pelvis reveals small fat-containing periumbilical hernia, otherwise no acute abdominal or pelvic process U/S interpreted by me (1pt. min.). @ -None done What testing was considered but not performed or refused? (CT, X-rays, U/S, labs)? Why? @ -None What meds were considered but not given or refused? Why? @ -None Did you discuss the management of the patient with other professionals (professionals i.e. , PA, INSTRUMENT SHOP SUPERVISOR, lab, RT, psych nurse, social studies department chair, usps letter carrier, teacher, employment officer, manager case management)? Give summary @ -No Was smoking cessation discussed for >3mins.? @ -No Was critical care preformed (if so, how long)? @ -No Were there social determinants of health that impacted care today? How? (Homelessness, low income, unemployed, alcoholism, drug addiction, transportat ion, low edu. Level, literacy, decrease access to med. care, snf, rehab)? @ -No Was there de-escalation of care discussed even if they declined (Discuss DNR or withdrawal of care, Hospice)? DNR status @ -No What co-morbidities impacted this encounter? (DM, HTN, Smoking, COPD, CAD, Cancer, CVA, ARF, Chemo, Hep., AIDS, mental health diagnosis, sleep apnea, morbid obesity)? @ -None Was patient admitted / discharged? Hospital course, mention meds given and route, prescriptions, significant lab abnormalities, going to OR and other pertinent info. @ -Discharge. This is a 38-year-old female with known umbilical hernia presenting for abdominal pain x 1 day. Vital signs within acceptable limits. Abdomen is soft and nontender. Umbilical hernia is reducible. Analgesics and antiemetics were provided for supportive care. Lab work unremarkable. Urinalysis remarkable for blood likely due to patient is on menstrual period. CT abdomen pelvis reveals small fat-containing periumbilical hernia, otherwise no acute abdominopelvic process. Results discussed with patient. Upon reevaluation patient reports symptoms have significantly improved. Appropriate return precautions and follow-up care discussed. Case was discussed with my ED attending Dr. Pavon. Undiagnosed new problem with uncertain prognosis? @ -No Drug Therapy requiring intensive monitoring for toxicity (Heparin, Nitro, Insulin, Cardizem)? @ -No Were any procedures done? @ -No Diagnosis/symptom? @ -Umbilical hernia Acute, or Chronic, or Acute on Chronic? @ -Acute Uncomplicated (without systemic symptoms) or Complicated (systemic symptoms)? @ -Uncomplicated Side effects of treatment? @ -No Exacerbation, Progression, or Severe Exacerbation? @ -No Poses a threat to life or bodily function? How? (Chest pain, [place], [place], pneumonia, PE, COPD, DKA, ARF, appy, cholecystitis, CVA, Diverticulitis, Homicidal, Suicidal, threat to staff... and all critical care pts) @ -No - Lab Data Result diagrams: 07/18/24 17:38 07/18/24 17:38 Lab Results 07/18/24 07/18/24 07/18/24 Range/Units 17:38 17:38 17:38 WBC 9.0 (3.8-10.6) k/uL RBC 4.44 (3.80-5.40) m/uL Hgb 13.0 (11.4-16.0) gm/dL Hct 41.1 (34.0-46.0) % MCV 92.6 (80.0-100.0) fL MCH 29.4 (25.0-35.0) pg MCHC 31.7 (31.0-37.0) g/dL RDW 13.1 (11.5-15.5) % Plt Count 278 (150-450) k/uL MPV 7.6 Neutrophils % 80 % Lymphocytes % 12 % Monocytes % 5 % Eosinophils % 1 % Basophils % 0 % Neutrophils # 7.2 (1.3-7.7) k/uL Lymphocytes # 1.1 (1.0-4.8) k/uL Monocytes # 0.5 (0-1.0) k/uL Eosinophils # 0.1 (0-0.7) k/uL Basophils # 0.0 (0-0.2) k/uL Sodium 140 (137-145) mmol/L Potassium 4.3 (3.5-5.1) mmol/L Chloride 107 (98-107) mmol/L Carbon Dioxide 27 (22-30) mmol/L Anion Gap 6 mmol/L BUN 12 (7-17) mg/dL Creatinine 0.62 (0.52-1.04) mg/dL Est GFR (CKD-EPI)AfAm >90 (>60 ml/min/1.73 sqM) Est GFR (CKD-EPI)NonAf >90 (>60 ml/min/1.73 sqM) Glucose 107 H (74-99) mg/dL Plasma Lactic Acid Dk 1.0 (0.7-2.0) mmol/L Calcium 9.3 (8.4-10.2) mg/dL Total Bilirubin 0.5 (0.2-1.3) mg/dL AST 18 (14-36) U/L ALT 17 (4-34) U/L Alkaline Phosphatase 53 (38-126) U/L Total Protein 6.9 (6.3-8.2) g/dL Albumin 4.5 (3.5-5.0) g/dL Lipase 37 (23-300) U/L Urine Color Urine Appearance (Clear) Urine pH (5.0-8.0) Ur Specific Buckner (1.001-1.035) Urine Protein (Negative) Urine Glucose (UA) (Negative) Urine Ketones (Negative) Urine Blood (Negative) Urine Nitrite (Negative) Urine Bilirubin (Negative) Urine Urobilinogen (<2.0) mg/dL Ur Leukocyte Esterase (Negative) Urine RBC (0-5) /hpf Urine WBC (0-5) /hpf Ur Squamous Epith Cells (0-4) /hpf Urine HCG, Qual (Not Detectd) 07/18/24 07/18/24 Range/Units 18:16 18:16 WBC (3.8-10.6) k/uL RBC (3.80-5.40) m/uL Hgb (11.4-16.0) gm/dL Hct (34.0-46.0) % MCV (80.0-100.0) fL MCH (25.0-35.0) pg MCHC (31.0-37.0) g/dL RDW (11.5-15.5) % Plt Count (150-450) k/uL MPV Neutrophils % % Lymphocytes % % Monocytes % % Eosinophils % % Basophils % % Neutrophils # (1.3-7.7) k/uL Lymphocytes # (1.0-4.8) k/uL Monocytes # (0-1.0) k/uL Eosinophils # (0-0.7) k/uL Basophils # (0-0.2) k/uL Sodium (137-145) mmol/L Potassium (3.5-5.1) mmol/L Chloride (98-107) mmol/L Carbon Dioxide (22-30) mmol/L Anion Gap mmol/L BUN (7-17) mg/dL Creatinine (0.52-1.04) mg/dL Est GFR (CKD-EPI)AfAm (>60 ml/min/1.73 sqM) Est GFR (CKD-EPI)NonAf (>60 ml/min/1.73 sqM) Glucose (74-99) mg/dL Plasma Lactic Acid Dk (0.7-2.0) mmol/L Calcium (8.4-10.2) mg/dL Total Bilirubin (0.2-1.3) mg/dL AST (14-36) U/L ALT (4-34) U/L Alkaline Phosphatase (38-126) U/L Total Protein (6.3-8.2) g/dL Albumin (3.5-5.0) g/dL Lipase (23-300) U/L Urine Color Colorless Urine Appearance Clear (Clear) Urine pH 6.5 (5.0-8.0) Ur Specific Buckner 1.018 (1.001-1.035) Urine Protein Negative (Negative) Urine Glucose (UA) Negative (Negative) Urine Ketones Negative (Negative) Urine Blood Moderate H (Negative) Urine Nitrite Negative (Negative) Urine Bilirubin Negative (Negative) Urine Urobilinogen <2.0 (<2.0) mg/dL Ur Leukocyte Esterase Negative (Negative) Urine RBC 22 H (0-5) /hpf Urine WBC <1 (0-5) /hpf Ur Squamous Epith Cells <1 (0-4) /hpf Urine HCG, Qual Not Detected (Not Detectd) Disposition Clinical Impression: Umbilical hernia Disposition: HOME SELF-CARE Condition: Stable Instructions (If sedation given, give patient instructions): Umbilical Hernia (ED) Additional Instructions: Follow-up with surgeon as discussed. Take Toradol as needed for pain. Please return to the Emergency Department if symptoms worsen or any other concerns. Prescriptions: Ketorolac [Toradol] 10 mg PO Q8HR #15 tab Is patient prescribed a controlled substance at d/c from ED?: No Referrals: Miriam Cohen MD [Primary Care Provider] - 1-2 days Time of Disposition: 19:39
[2024-07-18] MEDS: SODIUM CHLORIDE 0.9% 1,000 ML IV STA (18:05)
[2024-07-18 18:06] LABS: Basophils % (A) 0 %; Eosinophils # (A) 0.1 k/uL (0-0.7); Eosinophils % (A) 1 %; HCT 41.1 % (34.0-46.0); Lymphocytes # (A) 1.1 k/uL (1.0-4.8); Lymphocytes % (A) 12 %; MCH 29.4 pg (25.0-35.0); MCHC 31.7 g/dL (31.0-37.0); MCV 92.6 fL (80.0-100.0); Mean Platelet Volume 7.6; Monocytes # (A) 0.5 k/uL (0-1.0); Monocytes % (A) 5 %; Neutrophils # (A) 7.2 k/uL (1.3-7.7); Neutrophils % (A) 80 %; Platelet Count 278 k/uL (150-450); RBC 4.44 m/uL (3.80-5.40); RDW 13.1 % (11.5-15.5)
[2024-07-18] MEDS: KETOROLAC 15 MG/ML 1 ML VIAL IVP STA ×2 (18:06→19:45)
[2024-07-18 18:22] LABS: ALT 17 U/L (4-34); AST 18 U/L (14-36); African American GFR (CKD) >90 (>60 ml/min/1.73 sqM); Albumin 4.5 g/dL (3.5-5.0); Alkaline Phosphatase 53 U/L (38-126); Anion Gap 6 mmol/L; Blood Urea Nitrogen 12 mg/dL (7-17); Calcium 9.3 mg/dL (8.4-10.2); Carbon Dioxide 27 mmol/L (22-30); Chloride 107 mmol/L (98-107); Glucose 107 mg/dL (74-99); Lipase 37 U/L (23-300); Non-African American GFR(CKD) >90 (>60 ml/min/1.73 sqM); Potassium 4.3 mmol/L (3.5-5.1); Sodium 140 mmol/L (137-145); Total Bilirubin 0.5 mg/dL (0.2-1.3); Total Protein 6.9 g/dL (6.3-8.2)
[2024-07-18] MEDS: ONDANSETRON 4 MG/2 ML VIAL IVP STA (18:41)
--- NOTE | 2024-07-18 18:44 | CT ---
EXAMINATION TYPE: CT abdomen pelvis w con DATE OF EXAM: 07/18/2024 6:36 PM COMPARISON: Previous CT abdomen/pelvis 07/10/2024. CLINICAL INDICATION: Female, 38 years old with history of abd pain, umbilical hernia; umbilical herni a, abdominal pain TECHNIQUE: Axial CT abdomen pelvis w con;Sagittal and coronal reformats were created on a separate w orkstation. Contrast used:100 mL of Isovue 300 with IV Contrast, Oral contrast used: without Oral Contrast CT DLP: 1069.5 mGycm, Automated exposure control for dose reduction was used. FINDINGS: LOWER CHEST: Unremarkable ABDOMEN LIVER: Unremarkable GALLBLADDER AND BILE DUCTS: The gallbladder is surgically absent. PANCREAS: Unremarkable. SPLEEN: Unremarkable. ADRENAL GLANDS: Unremarkable. KIDNEYS AND URETERS: No evidence of hydronephrosis or renal calculus. The ureters are unremarkable. Ectopic right pelvic kidney again noted. PELVIS BLADDER: No evidence for wall thickening or mass given limitations of exam. REPRODUCTIVE: Unremarkable. ABDOMEN & PELVIS STOMACH AND BOWEL: Stomach and duodenum are unremarkable No evidence of bowel obstruction. Appendix v isualized and appears normal. PERITONEUM/RETROPERITONEUM: No evidence of pneumoperitoneum or free fluid. VASCULATURE: No evidence of aortic aneurysm. MUSCULOSKELETAL: No acute osseous abnormalities LYMPH NODES: No gross evidence for lymphadenopathy. SOFT TISSUE/ABDOMINAL WALL: Small fat-containing periumbilical hernia. IMPRESSION: 1. No acute abnormality in the abdomen/pelvis. 2. Small fat-containing periumbilical hernia. [facility], , 07/18/2024 6:41 PM
[2024-07-18] MEDS: hydrOXYzine HCL 25 MG TAB PO STA (18:57)
[2024-07-18 19:05] VITALS: PULSE 62; RESP 18
[2024-07-18 19:19] LABS: Appearance,Urine Clear (Clear); Bilirubin,Urine Negative (Negative); Blood,Urine Moderate (Negative); Color,Urine Colorless; Glucose,Urine (UA) Negative (Negative); Ketones,Urine Negative (Negative); Leukocyte Esterase,Urine Negative (Negative); Nitrite,Urine Negative (Negative); PH, Urine 6.5 (5.0-8.0); Protein,Urine Negative (Negative); RBC,Urine 22 /hpf (0-5); Specific Gravity,Urine 1.018 (1.001-1.035); Squamous Epithelial Cell,Urine <1 /hpf (0-4); Urobilinogen,Urine <2.0 mg/dL (<2.0); WBC,Urine <1 /hpf (0-5)
[2024-07-18 19:55] VITALS: BP 126/79; TEMP 97.8
== END 2024-07-18 19:55 | disposition home or self-care (01) ==
LOC: EC 16:41
DX: K42.9 Umbilical hernia without obstruction or gangrene (principal); Z87.891 Personal history of nicotine dependence; Z88.5 Allergy status to narcotic agent; Z91.011 Allergy to milk products; Z91.012 Allergy to eggs; Z88.8 Allergy status to other drugs, medicaments and biological substances; Y92.000 Kitchen of unspecified non-institutional (private) residence as the place of occurrence of the external cause; W01.198A Fall on same level from slipping, tripping and stumbling with subsequent striking against other object, initial encounter
CPT/HCPCS: 96376 ×2; 96361 ×2; 96374 ×2; 99285 ×2; 36415; 80053; 83605; 83690; 85025; 81001; 81025; 74177; J2405; J1885; Q9967

== ENCOUNTER → 2024-08-18 | Outpatient (CLI) | payer OTHER ==
[2024-08-18 15:23] LABS: Basophils # (A) 0.04 X 10*3/uL (0.00-0.10); Eosinophils # (A) 0.09 X 10*3/uL (0.04-0.35); Eosinophils % (A) 2.2 %; HCT 43.5 % (37.2-46.3); HGB 13.4 g/dL (12.0-15.0); Immature Grans, Automated 0 %; Lymphocytes # (A) 1.46 X 10*3/uL (0.90-5.00); MCH 28.7 pg (27.0-32.0); MCHC 30.8 g/dL (32.0-37.0); MCV 93.1 FL (80.0-97.0); Mean Platelet Volume 10.6 FL (9.5-12.2); Monocytes # (A) 0.37 X 10*3/uL (0.20-1.00); Monocytes % (A) 9.1 %; NRBC Per 100 WBC 0 X 10*3/uL (0.00-0.01); Neutrophils % (A) 51.7 %; Platelet Count 272 X 10*3/uL (140-440); RBC 4.67 X 10*6/uL (4.10-5.20); RDW 12.7 % (11.5-14.5); WBC 4.06 X 10*3/uL (4.50-10.00)
== END | disposition home or self-care (01) ==
LOC: LABPAT 08:01
PROVIDERS: ATTEND Surgery
DX: Z01.818 Encounter for other preprocedural examination (principal); K42.9 Umbilical hernia without obstruction or gangrene; R94.31 Abnormal electrocardiogram [ECG] [EKG]
CPT/HCPCS: 85025; 86850; 86900; 86901; 93005